=== PATIENT | male | born 1940 | race Caucasian/White ===

== ENCOUNTER 2021-08-14 14:33 | Emergency (ER) | payer OTHER ==
[~2021-08-14] VITALS: Ht 172.7 cm; Wt 84.4 kg
[2021-08-14] MEDS ORDERED: FISH OIL 1,0001 EAC9 PO (14:39)
[2021-08-14] MEDS ORDERED: ALPRAZOLAM 0.0.25 M1 PO (14:39)
[2021-08-14] MEDS ORDERED: MELATONIN3 M1 PO (14:40)
[2021-08-14] MEDS ORDERED: FLOMAX0.4 MG PO (14:40)
[2021-08-14] MEDS ORDERED: MAG-OXIDE400 MG PO (14:40)
[2021-08-14 14:52] LABS: HEMATOCRIT 37.7 % (42.0-52.0); HEMOGLOBIN 12.7 gm/dL (14.0-18.0); MCH 30.2 pg (26.0-34.0); MCHC 33.7 g/dL (28.0-37.0); MCV 89.5 fL (80.0-100.0); RBC 4.21 mil/uL (4.50-6.00); RDW 13.3 % (10.5-14.5); WBC 6.7 thou/uL (4.0-11.0)
[2021-08-14 15:05] LABS: CALCIUM 8.8 mg/dL (8.5-10.1); CREATININE 1.3 mg/dL (0.7-1.3); POTASSIUM 4.4 mmol/L (3.5-5.1)
[2021-08-14 15:11] LABS: ALBUMIN 3.7 g/dL (3.4-5.0); TOTAL BILIRUBIN 0.3 mg/dL (0.2-1.0); TOTAL PROTEIN 7.2 g/dL (6.4-8.2)
[2021-08-14 15:25] LABS: URINE BILIRUBIN NEGATIVE (Negative); URINE BLOOD NEGATIVE (Negative); URINE CLARITY CLEAR; URINE COLOR YELLOW; URINE GLUCOSE-RANDOM* NEGATIVE (Negative); URINE KETONES NEGATIVE (Negative); URINE LEUKOCYTES-REFLEX NEGATIVE (Negative); URINE NITRITE-REFLEX NEGATIVE (Negative); URINE PROTEIN (DIPSTICK) NEGATIVE (Negative); URINE UROBILINOGEN 0.2 E.U./dl (0.2-1.0)
[2021-08-14 15:34] LABS: AMP/METHAMP Negative (Negative); BARBITURATES Negative (Negative); BENZODIAZEPINES Negative (Negative); COCAINE Negative (Negative); METHADONE Negative (Negative); OPIATES Negative (Negative); PCP Negative (Negative)
[2021-08-14 20:39] VITALS: BP 118/62
--- NOTE | 2021-08-15 07:19 | EKG ---
[place] [address] [facility] [place] [address] ELECTROCARDIOGRAM REPORT Name: TRI CAMARILLO Room #: DEP ISRAEL [place]#: [id number] Admission: 08/14/21 Attend Phys: Discharge: 08/14/21 Date of : 36 Report #: [id number] [facility] ED Test Date: 2021-08-14 Test Time: 16:17:35 Pat Name: TRI CAMARILLO Department: Room: Gender: Weight Count Operator: KELLY : 1940 Requested By: Oksana Fajardo Order Number: [id number] MD: Carlos Crump Measurements Intervals [place] Rate: 68 P: 32 RI: 179 QRS: -72 QRSD: 93 T: 32 QT: 420 QTc: 447 Interpretive Statements Sinus rhythm Atrial premature complex Abnormal R-wave progression, late transition No previous ECG available for comparison Electronically Signed On 08-15-2021 7:19:07 CDT by Carlos Crump [email or web address] <ELECTRONICALLY SIGNED> By: Carlos Crump MD, [facility] 08/15/21 0719 1617 1617 Carlos Crump MD, FACC /EPI
== END 2021-08-14 20:39 ==
LOC: ER 14:33
PROVIDERS: Nurse Practitioner Family
DX: F91.8 Other conduct disorders (principal); Z20.822 Contact with and (suspected) exposure to COVID-19; J18.0 Bronchopneumonia, unspecified organism; F02.80 Dementia in other diseases classified elsewhere, unspecified severity, without behavioral disturbance, psychotic disturbance, mood disturbance, and anxiety; J44.9 Chronic obstructive pulmonary disease, unspecified; Z79.891 Long term (current) use of opiate analgesic; Z79.899 Other long term (current) drug therapy

== ENCOUNTER 2021-08-14 18:04 | Inpatient (IN) | payer OTHER ==
[~2021-08-14] VITALS: Ht 172 cm; Wt 63.7 kg
[~2021-08-14 18:04] MED LIST: ALPRAZOLAM 0.0.25 M1 PO; FISH OIL 1,0001 EAC9 PO; FLOMAX0.4 MG PO; MAG-OXIDE400 MG PO; MELATONIN3 M1 PO
--- NOTE | 2021-08-14 23:27 | NUR ---
ADMISSION SUMMARY PT WAS ADMITTED TO [facility] ON 08/14/21 AT 2042. PT WAS CALM, PLEASANT, COOPERATIVE WITH ADMISSION PROCESS. VITAL SIGNS WERE OBTAINED; WITHIN NORMAL LIMITS. SKIN ASSESSMENT PERFOMED; SKIN IS DRY BUT OTHERWISE UNREMARKABLE. VERBAL CONSENTS WERE OBTAINED; RN SPOKE WITH VY CAMARILLO AT [phone]. VY CAMARILLO SHARED THAT PT IS A SMOKER AND RECENTLY THE [facility] HAS DECREASED PT FROM SMOKING 1.5 PACKS A DAY TO ONLY 5 CIGARETTES PER DAY. DPOA WONDERS IF THE NICOTINE WITHDRAWAL COULD BE CAUSING PT'S BEHAVIOR CHANGE. (NICOTNE PATCH IS ORDERED FOR PATIENT.) DPOA STATES THAT PT ONLY HAS A 5TH GRADE EDUCATION AND THE PATIENT IS NOT ABLE TO ANSWER MOST QUESTIONS INTELLIGENTLY. JI SAUER WAS NOTIFIED PT WAS ADMITTED; BEING SEEN FOR PNEUMONIA. DPOA STATES THAT PT DOES NOT HAVE A HISTORY OR FALLS AND STAYS ACTIVE. THIS EVENING PT WAS ALERT AND ORIENTED ONLY TO SELF.
[2021-08-15 07:31] LABS: CHOLESTEROL 154 mg/dL (<200); HDL CHOLESTEROL 47 mg/dL (>40); LDL CHOLESTEROL 78 mg/dL (<100); TC:HDL 3.3 Ratio (Not establshd); TRIGLYCERIDE 148 mg/dL (<150); VLDL 30 mg/dL (<40)
[2021-08-15 07:44] LABS: SERUM ASSESSMENT Clear
[2021-08-15 09:04] VITALS: BP 110/51
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
--- NOTE | 2021-08-15 19:06 | NUR ---
LINDSEY and Dr. Navarro attempted to meet with the Pt. Pt was sleep and did not awake when his name was called. We were able to talk to the Pt's DPOA, Wilfrid Robertshop [phone]. Wilfrid gave brief history on the Pt. Wilfrid and the Pt moved to [place] in January of 2021. Pt has been at [facility] since that time. 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 Pt's mother and a brother passed from alzheimer's. Pt's father passed from a heart attack. Pt has 6 siblings, 3 still living. Pt completed the 5th grade. Pt was twice. Pt's 2nd passed 3 years ago. They were 30 years. Hx of drug and ETOH use was denied. Denied prior psychiatric hospital stays. There were no questions or concerns. LINDSEY will continue to follow
--- NOTE | 2021-08-15 23:39 | NUR ---
AT ONSET OF SHIFT PT WAS RESTING IN BED ASLEEP. PT WAS DROWSY THIS SHIFT. PT IS UNABLE TO ANSWER ASSESSMENT QUESTIONS APPROPRIATELY. PT WAS UNCOOPERATIVE DURING ASSESSMENT; WOULD NOT REPOSITION FOR RN TO AUSCULTATE PT. PT REFUSED MEDICATION CRUSHED IN PUDDING. PT WOULD NOT OPEN HIS MOUTH. LAB ATTEMPTED TO DRAW BLOOD FROM PATIENT. PATIENT PULLED ARM AWAY. RN LATER ATTEMPTED TO DRAW BLOOD AGAIN AND PT BECAME COMBATIVE. PT ATTEMPTED TO STAND UP. STAFF WAS ABLE TO DRAW ONE TUBE, BUT WILL ATTEMPT AGAIN LATER. WILL CONTINUE TO MONITOR.
[2021-08-16 01:01] LABS: ALBUMIN 3.8 g/dL (3.4-5.0); CALCIUM 9.2 mg/dL (8.5-10.1); POTASSIUM 4.4 mmol/L (3.5-5.1); TOTAL BILIRUBIN 0.5 mg/dL (0.2-1.0); TOTAL PROTEIN 7.4 g/dL (6.4-8.2)
[2021-08-16 04:07] LABS: GLYCOHEMOGLOBIN (HGB A1C) 5.6 % (4.8-5.6)
[2021-08-16 05:32] LABS: HEMATOCRIT 39.2 % (42.0-52.0); HEMOGLOBIN 13.1 gm/dL (14.0-18.0); MCH 30.4 pg (26.0-34.0); MCHC 33.4 g/dL (28.0-37.0); RBC 4.31 mil/uL (4.50-6.00); RDW 13.1 % (10.5-14.5); WBC 5.7 thou/uL (4.0-11.0)
[2021-08-16 09:24] VITALS: BP 120/69
[2021-08-16 13:49] VITALS: BP 120/69
--- NOTE | 2021-08-16 19:32 | NUR ---
Patient care resummed. patient was up and wondering the unit upon shift change. Patient refused his PO zyprexa this AM and forced IM was given in place by orders. Security was called for assistance. Patient is disoriented *4 and is unable to properly answer questions, in responce mumbles unclear words. Patient was found multiple times in other patients rooms in there beds, needin to be reorientened to his room. Patient is meal compliant, and have increased patients water intake. Patients lung sounds noted for wheezing with O2 noted @ 98%. Patient is uncooperative for all care. Patient presented to CYBER SECURITY ANALYST calm and confused but when hands on care was needed patient became combative. Will continue to monitor patient for safety and behaviors.
[2021-08-16 20:28] VITALS: BP 155/89
--- NOTE | 2021-08-17 06:28 | NUR ---
ASSUMED CARE ON 08/16/21 @ 1900, SEATED IN NAZANIN CHAIR IN DAY ROOM. TOOK MEDS P.O. REQUIRING SOME OF THE MEDS TO BE CRUSHED IN PUDDING. RESTLESS AND SPITTING ON STAFF. GIVEN ZYPREXA IM WITH [id number] ASSISTANCE, TOLERATED WELL. OCCASIONAL COUGH NOTED. DID NOT SLEEP AT ALL OVERNIGHT AND WAS CONTINUALLY RESTLESS TRYING TO PUT LEGS OUT OF NAZANIN CHAIR AND GET OUT OF THE CHAIR.
[2021-08-17 09:39] VITALS: BP 107/65
[2021-08-17 11:59] LABS: URINE BILIRUBIN NEGATIVE (Negative); URINE BLOOD NEGATIVE (Negative); URINE CLARITY CLEAR; URINE COLOR YELLOW; URINE GLUCOSE-RANDOM* NEGATIVE (Negative); URINE KETONES NEGATIVE (Negative); URINE LEUKOCYTES-REFLEX NEGATIVE (Negative); URINE NITRITE-REFLEX NEGATIVE (Negative); URINE PROTEIN (DIPSTICK) TRACE (Negative); URINE SPECIFIC GRAVITY >= 1.030 (1.005-1.035); URINE UROBILINOGEN 0.2 E.U./dl (0.2-1.0)
[2021-08-17 12:49] VITALS: BP 107/65
--- NOTE | 2021-08-17 17:45 | NUR ---
Derik was alert and oriented to self only this shift. He was disorganized and his speech was garbled. He was very restless this morning, trying to climb out of his chair. The RACE CAR DRIVER reported to this RN that pt was not toileted last night and pt had not yet urinated today, and was still dry. Pt was bladder scanned and it showed that pt had greater than [address] Mendoza was paged and orders received to bladder scan pt every 6 hours and to straight cath pt if greater than 350 mL. Pt was straight cathed at 1140 and had 675 mL output. Pt was still restless but less so than prior to straight cath. Pt was bladder scanned again at 1700 and had 98mL. Pt was medication compliant this shift, taking zyprexa whole in pudding. This shift RACE CAR DRIVER reported that pt appeared to be shaking uncontrollably but was reposonsive during that time, and it lasted about 1 minute. Pt was also less mobile this shift, and presented with stiff legs during transfers and required 3 staff members with cares. Due to significant change from pt's mobiity and decline from pt walking yesterday, NOHELIA Garrison held pt's zyprexa tonight and ordered a one time dose of ativan PO. Pt was also noted grapsing and talking to the unseen throughout the day. Pt also has poor oral intake as pt would spit out any food that was fed to him, despite him agreeing he was hungry. A piece of bread of placed in front of pt to see if he would eat if he was able to feed himself but pt took a bite an then spit that out. Pt was obsserved by this RN jerking his arms and legs this afternoon and did not appear to be seizure activity as pt was responsive to this RN's touch. Pt's COVID test was also completed this shift and order placed per NOHELIA Garrison. Will continue to monitor.
--- NOTE | 2021-08-18 00:31 | NUR ---
RECEIVED CALL FROM DARIN IN LAB AT 0010 STATING THAT THIS PATIENT HAD A CONFIRMED POSITIVE COVID PCR THAT JUST PROCESSED. MOVED PATIENT IMMEDIATELY FROM THE DINING ROOM WHERE HE HAD BEEN SITTING AWAY FROM OTHER PATIENTS AND WITH THE JUVENILE COURT JUDGE'S. PATIENT MOVED TO HIS BED AND MADE COMFORTABLE. NOHELIA RODRÍGUEZ AND NOHELIA ANN NOTIFIED BY PHONE. ORDER GIVEN FOR ISOLATION CART AND WAS SET UP WITH ISOLATION GOWNS, [id number] AND GLOVES OUTSIDE ROOM. DUE TO PATIENT'S DEMENTIA WITH BEHAVIORS PATIENT'S DOOR NEEDS TO STAY PARTIALLY OPEN TO WATCH PATIENT. PATIENT IS RESTLESS OFF AND ON IN BED. AT THIS TIME HE IS STILL. PATIENT WAS BLADDER SCANNED AT MIDNIGHT AND HAD 155ML RESIDUAL. HE WAS NOT SCANNED. NOHELIA RODRÍGUEZ STATES TO RECHECK COVID WHEN DO NEXT BLADDER SCAN WHEN DO MORNING CARES AROUND 6 OR 7. MAY NEED 1:1 ON PATIENT IF BEHAVIORS ESCALATE. NEED ORDER FOR THIS IF IT HAPPENS. BED IN LOW POSITION AND BED ALARM IS ON. CONTINUING TO MONITOR.
--- NOTE | 2021-08-18 01:38 | NUR ---
PATIENT SAT UP IN DINING ROOM UNTIL CALL RECIEVED OF POSITIVE COVID PCR RESULT AND PT THEN PLACED IN BED IN HIS ROOM. PATIENT IS COMBATIVE WITH CARES AND WAS UNABLE TO GET VITALS ON PATIENT. FOUGHT ALOT JUST TO GET 02 PULSE OX DONE WHICH WAS 98. PATIENT DID HAVE A CUP OF WATER TONIGHT, ABOUT 100CC. PATIENT HAVING VISUAL HALLUCINATIONS AND APPEARS TO SEE THINGS IN THE AIR AND LOOKS LIKE HE IS TRYING TO GRAB THINGS AND PULL THEM DOWN FROM THE KRYSTYNA. HE IMAGINES HE IS FEEDING HIMSELF BUT REFUSES FOOD WHEN TRYING TO GIVE HIM ANY. REFUSED HALF OF HIS MEDS THAT WERE CRUSHED IN PUDDING TONIGHT AFTER SEVERAL ATTEMPTS. Malik BURNS NP NOTIFIED. NO NEW ORDER. PATIENT RAMBLES WHEN TALKING AND DOESN'T MAKE SENSE. NO SIGNS OF SI/HI NOTED. BED IN LOW POSITION AND BED ALARM IS ON. ROUTINE ROUNDS TO ASSESS SAFETY AND STATUS OF PATIENT. PATIENT REMAINS IN FULL CONTACT ISOLATION. CONTINUING TO MONITOR.
--- NOTE | 2021-08-18 05:30 | NUR ---
PATIENT HAD 120 WATER IN ROOM TONIGHT. HE STARTED WITH CONGESTIVE NONPRODUCTIVE COUGH AROUND 0500 TODAY. PATIENT VERY COMBATIVE WITH CARES AND HAD A COUPLE OF SECONDS EARLIER IN THE NIGHT OF EXTREMITIES SHAKING LIKE A STARTLE RESPONSE BUT SPONTANEOUSLY. PATIENT WAS AWAKE AND TALKING AT THE TIME.DID NOT DO 0600 BLADDER SCAN D/T COMBATIVENESS OF PATIENT AND HE HAD SOAKED THRU HIS DISPOSABLE BRIEFS WITH URINE. PALPATED OVER BLADDER WITHOUT SIGN OF TENDERNESS OR DISCOMFORT. PATIENT VISUALLY HALLUCINATING AND PULLING THINGS OUT OF THE AIR THAT HE SEE'S. UNSURE OF WHAT HE IS SEEING. PATIENT IN NAZANIN CHAIR IN ROOM. ORDER FOR LAP MIGUEL TO FASTEN IN THE FRONT OBTAINED. PT QUIET BUT RESTLESS IN NAZANIN CHAIR. CONTINUING TO MONITOR.
[2021-08-18 09:37] VITALS: BP 122/72
[2021-08-18 10:37] VITALS: BP 122/72
[2021-08-18 15:17] LABS: ABSOLUTE NEUTROPHILS 7.3 thou/uL (1.4-8.2); BASOPHILS 0.2 % (0.0-2.0); EOSINOPHILS 0.7 % (0.0-3.0); HEMATOCRIT 40.2 % (42.0-52.0); HEMOGLOBIN 13.5 gm/dL (14.0-18.0); LYMPHOCYTES 11.5 % (24.0-44.0); MCH 30.3 pg (26.0-34.0); MCHC 33.5 g/dL (28.0-37.0); MCV 90.3 fL (80.0-100.0); MONOCYTES 8.7 % (1.0-8.0); PLATELET COUNT 173 thou/uL (150-400); POLYS 78.9 % (36.0-66.0); RBC 4.45 mil/uL (4.50-6.00); RDW 13.5 % (10.5-14.5); WBC 9.2 thou/uL (4.0-11.0)
[2021-08-18 15:34] LABS: ALBUMIN 3.8 g/dL (3.4-5.0); CREATININE 0.9 mg/dL (0.7-1.3); POTASSIUM 4.7 mmol/L (3.5-5.1); TOTAL BILIRUBIN 0.7 mg/dL (0.2-1.0); TOTAL PROTEIN 7.4 g/dL (6.4-8.2)
--- NOTE | 2021-08-18 18:02 | NUR ---
At the start of the shift pt was on contact/droplet/airborne precautions for testing positive for COVID yesterday. Due to pt being a high fall risk, a staff member was sitting outside pt's door and keeping a close eye on pt. When RN supervisor drying, Sue, came to the unit, pt's behaviors and change in status from yesterday was explained and she advocated and spoke to Dr. Gardner, and orders received for stat cogentin 1 mg IM and ativan 1 mg IM given per DEC. Shortly after administration pt fell asleep and remained asleep until about 1700. Pt was monitored very frequently and was bladder scanned at 1200 and showed 164 mL, therefore pt was not straight cathed at that time. Pt was bladder scanned again at 1730 and showered 378 mL. Pt was straight cathed but was only able to obtain 275 mL output. Pt had a lapbuddy on throughout the day, due to being required to stay in his room due to isolation and restlessnes but that was removed at 1700. Isolation precautions were also discontinued this afternoon after retest today came back negative. Pt was placed in bed for the straight cath and is currently resting in bed with 3 siderails raised and bed alarm on highest setting. Pt was alert and oriented to self only this shift and was x2 assist. Pt did not appear in physical discomfort throughout the day, will continue to monitor.
[2021-08-18 20:20] VITALS: BP 121/61
[2021-08-18 20:23] VITALS: BP 121/61
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
--- NOTE | 2021-08-19 00:37 | NUR ---
PATIENT WAS IN BED RESTING WHEN ASSUMED CARE OF PATIENT AT 1900. PATIENT APPEARED MORE RELAXED TONIGHT AND SEEMED MORE ALERT. PATIENT STILL RAMBLES AND DOESN'T MAKE SENSE WHEN HE TALKS. HE HAS NOT APPEAR TO BE HAVING THE CONSTANT VISUAL HALUCINATIONS AND GRABBING THINGS FROM THE AIR THAT HE SEES. HE IS CALMER. HE BECAME RESTLESS FROM SLEEPING ALL DAY AND PATIENT WAS BROUGHT TO THE DINING ROOM TO RECLINE IN A NAZANIN CHAIR AT A TABLE. CHAIR ALARM ON AND IN PLACE. WHEELS LOCKED. PATIENT HAS BEEN CONTENT SITTING THERE AND DOSES OFF AND SLEEPS FOR A BIT AND THEN AWAKES AND SITS QUIETLY OR TALKS TO HIMSELF. HIS BODY SEEMS TO PULL TO HIS LEFT AND HE LEANS MORE ON TO HIS LEFT SIDE IN HIS CHAIR WITH HIS HEAD LEANING MORE TO THE LEFT. PATIENT IS CONTENT. HE HAS NOT DRANK MUCH WATER SO FAR BUT WILL ENCOURAGE. CONTINUING TO MONITOR.
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
--- NOTE | 2021-08-19 05:10 | NUR ---
PATIENT HAS BEEN QUIET MOST OF NIGHT. HE DOES NOT LIKE TO BE TOUCHED AND STARTLES AT APPROACH AT TIMES. HAVE SEEN 2 SLIGHT TREMORS/SEIZURE LIKE MOVEMENTS TONIGHT. HE IS MORE RELAXED TONIGHT. NOT TENSE. PATIENT DID DRINK 200 CC OF WATER TONIGHT. PATIENT HAS NOT VOIDED SO FAR TONIGHT. NEXT BLADDER SCAN DUE AROUND 0730. PATIENT RESTING QUIETLY IN RECLINER AT TABLE IN DINING ROOM. CHAIR ALARM ON AND WHEELS LOCKED. CONTINUING TO MONITOR. COMBATIVE WITH CARES.
--- NOTE | 2021-08-19 06:49 | NUR ---
PATIENT CATHED AT 0645 DUE BLADDER DISTENDED AND RESIDUAL WAS ONLY AT 339. CATHED PATIENT AND EXTRACTED 350CC OF JOSE COLORED URINE. PT TOLERATED WELL. PT DID ASK FOR CUP OF WATER AFTER PROCEDURE AND WAS GIVEN ICE WATER.
[2021-08-19 09:21] VITALS: BP 137/77
[2021-08-19 09:37] VITALS: BP 120/66
--- NOTE | 2021-08-19 14:44 | NUR ---
LINDSEY and Dr. Navarro participated in aphone call with the Pt's DPOA, Wilfrid. An update was given on the Pt. Pt is not eating or drinking. Options for hospice and NG tubes was discussed. Further education was provided about hospice. Pt will be ready for discharge . Wilfrid wanted time to talk to other family concerning the matter. A family meeting was set for 08/20/2021 @1300.
--- NOTE | 2021-08-19 17:52 | NUR ---
Pt was alert and oriented to self only throughout the day. He would often talk to himself, rambling, and making nonsensical statements. Pt continues to have difficulties with urinary retention. He was bladder scanned at 1230 with 101 mL and bladder scanned at 1730 showed 194 mL, therefore pt was not straight cathed as he was not greater than 350 mL. Pt had poor oral intake this shift as pt ate a couple of bites at breakfast and two sips of an ensure. Pt took 4 bites of lunch and when encouraged to eat more pt stated "get that away from me" and would push away at staff. This afternoon pt was able to drink about 100 mL of water and would take the cup when he was thirsty. Despite encouragement, pt did not eat or drink anything for dinner. Pt took his PO seroquel this morning cruched in a bite of pudding that was given with repetitive approaches. Pt's seroquel was discontinued this shift and BMP ordered for tomorrow morning. Will continue to monitor.
--- NOTE | 2021-08-19 19:17 | NUR ---
Assumed care on 08/19/21 @ 1900, in a radha chair in the day room, eyes closed, respirations even and unlabored. Responds to voice, does not answer questions with intellegible response.
[2021-08-19 19:53] VITALS: BP 123/79
[2021-08-19 22:16] VITALS: BP 123/79
[2021-08-20 09:02] LABS: CALCIUM 9.2 mg/dL (8.5-10.1); CREATININE 0.9 mg/dL (0.7-1.3); POTASSIUM 3.9 mmol/L (3.5-5.1)
[2021-08-20 09:48] VITALS: BP 150/92
--- NOTE | 2021-08-20 17:46 | NUR ---
Assumed pt care at 0700. Pt was sadated upon assessments. Unable to assess orientation. Meds were not administered this shift. Pt ate one tin of apple sauce this shift. Ambulates with a Celine chair. Bladder scanned pt at 1700. pt had 350ml. Straight cath output was 400ml. At this time pt is in the day room awake. Will continue to monitor pt.
[2021-08-20 19:21] VITALS: BP 130/76
--- NOTE | 2021-08-21 00:42 | NUR ---
PATIENT RESTING IN COMMON AREA IN NAZANIN CHAIR. PATIENT IS AAOX1 ONLY. HE IS UNABLE TO HOLD A CONVERSATION. HE SHOWS NO S/S OF PAIN AT THIS TIME. PT SPEECH IS DELUSIONAL. HE TALKS ABOUT RELEVANT TOPICS BUT IT APPEARS TO BE FLASHBACKS. ALL SAFETY PRECAUTIONS ARE IN PLACE. VSS. WILL CONTINUE TO MONITOR FOR CHANGES IN STATUS.
[2021-08-21] MEDS ORDERED: FLOMAX0.4 MG PO (09:24)
[2021-08-21] MEDS ORDERED: MORPHINE S100 MG/51 SUBLING (09:26)
[2021-08-21] MEDS ORDERED: LORAZEPAM I2 MG/1 M2 PO (09:27)
[2021-08-21 09:53] VITALS: BP 123/65
[2021-08-21 09:54] VITALS: BP 123/65
[2021-08-21 09:58] VITALS: BP 123/65
--- NOTE | 2021-08-21 10:00 | NUR ---
Patient care resummed, patient was up and in radha:chair upon shift change. Patient was meal compliant, medications have been D/C pending discharge to [facility]. Patient does have Comfort care medications on hand PRN. Patient is A&O*1, orientated only to self. Patients VSS and WNL. Patients abdomen is mildly distended, and bowel sounds are present. Patient has voided twice this morning. Patients lungs sounds present, with wheezeing noted. Patient has a bruise to the Right forarm, skin is warm and moist. Patient O2 95% on room air. Patient unable to voice concerns/goals and was uncooperative with assessment. Will continue to monitor patient for safety and behaviors. Fall preventions are in place. Discharge pending today for 113.
[2021-08-21 10:07] VITALS: BP 123/65
--- NOTE | 2021-08-21 10:53 | NUR ---
08/20/2021 LINDSEY assisted with the Pt completeing a zoom assessment with Caitlin at [facility]. [facility] is able to accept the Pt back on 08/21/2021. The prefered hospice company [facility]. LINDSEY did fax a referral to [facility].
--- NOTE | 2021-08-21 10:55 | NUR ---
Pt will discharge 08/21/2021 @ 1130 to [facility]. Sw recieved a call from [facility] who confirmed they have accepted the Pt. Discharge documents have been faxed to [facility] and [facility] Pt will be transported via stretcher by [facility]
--- NOTE | 2021-08-21 11:55 | NUR ---
Patient discharged from out facility at 1135 [facility] by a stretcher. Patient had brown paper bag with belongs located inside, along side discharge paperwork in a envolpe. Report was given to Caitlin at [facility] in [facility] at 1100. TECHNICAL MGR spoke to the patients DPOA at 1055 to recieve verbal consent for discharge paperwork, and to report that the patient was leaving the facility. TECHNICAL MGR reported to DPOA patient current condition and discharge time. Patient loaded into transport safely without complication.
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
== END 2021-08-21 11:35 | disposition hospice, inpatient (51) | DRG 56 ==
LOC: SBH
PROVIDERS: Hospitalist; Internal Medicine; Nurse Practitioner; Nurse Practitioner Family; ADMIT Psychiatry & Neurology Psychiatry; ATTEND Psychiatry & Neurology Psychiatry
DX: G30.9 Alzheimer's disease, unspecified (principal); F01.51 Vascular dementia, unspecified severity, with behavioral disturbance; J18.9 Pneumonia, unspecified organism; F02.81 Dementia in other diseases classified elsewhere, unspecified severity, with behavioral disturbance; J44.0 Chronic obstructive pulmonary disease with (acute) lower respiratory infection; Z20.822 Contact with and (suspected) exposure to COVID-19; N40.0 Benign prostatic hyperplasia without lower urinary tract symptoms; I10 Essential (primary) hypertension; M19.90 Unspecified osteoarthritis, unspecified site; R26.89 Other abnormalities of gait and mobility; Z86.711 Personal history of pulmonary embolism
CPT/HCPCS: 10880

== ENCOUNTER 2021-08-22 16:05 | Inpatient (IN) | payer OTHER ==
[~2021-08-22] VITALS: Ht 172.7 cm; Wt 60.1 kg
[~2021-08-22 16:05] MED LIST changes: +LORAZEPAM I2 MG/1 M2 PO; +MORPHINE S100 MG/51 SUBLING
[2021-08-22 16:14] VITALS: BP 118/69
--- NOTE | 2021-08-22 19:02 | NUR ---
RECEIVED CALL FROM NURSING FACILITY WHERE PT RESIDES. THEY DECLINE TO HAVE HIM RETURNED
[2021-08-23 01:43] VITALS: BP 148/72
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
[2021-08-23 07:28] VITALS: BP 109/64
--- NOTE | 2021-08-23 09:40 | NUR ---
STRIKES OUT AT STAFF WHEN ATTEMPTED TO GIVE FLU SHOT OR FEED BREAKFAST-OPENS EYES AND STATES GET THE HELL AWAY FROM ME I DON'T WANT ANY FOOD OR ANY MEDICINE-JUST LEAVE ME ALONE" HAS CRAWLD [facility] SIDE [facility] SE[facility] TIM[facility] THIS AM.REFUSES AM ASSESSMENT-MEALS,MEDS VS ECT...
[2021-08-23 19:58] VITALS: BP 121/40
--- NOTE | 2021-08-24 02:54 | NUR ---
PATIENT AAOX1. PATIENT REACHED IN THE AIR FOR OBJECTS THAT ARE NOT PRESENT. HE IS INCONTINENT OF BWEL AND BLADDER. NO EVIDENCE OF PAIN NOTED. PATIENT HAS NOT SHOWN ANY OUTBURSTS DURING THIS SHIFT. VSS. WILL CONTINUE TO MONITOR.
--- NOTE | 2021-08-24 09:26 | NUR ---
HAS HAD EPSIDOES OF RESTLESSNESS THIS AM- ATTEMPTING TO CRAWL OVER THE SIDE OF [facility] IN ORDER TO GET UP AND WALK ON OWN. 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
--- NOTE | 2021-08-24 10:37 | NUR ---
OFFERS MINIMAL VERBAL RESPONSES DURING 1;1 WITH THIS RN-DENIES C/O PAIN-DISCOMFORT. DID EAT APPROX 35 PERCENT OF BREAKFAST AND TAKES ICE CHIPS AND WATER WELL WITH MINIMAL PROMPTING. CONTINUES TO APPEAR TO REACH OUT FOR UNSEEN OBJECTS AND AT ONE POINT THIS AM APPEARED TO BE HAVING CONVERSATION WITH UNSEENM OTHERS
[2021-08-24 10:38] VITALS: BP 115/72
--- NOTE | 2021-08-24 15:51 | NUR ---
3:50PM - Phone call to DPOA regarding pt. DPOA states that once pt returned to facility with hospice, he started eatinh again which had been a concern. The DPOA is concerned that the pt. will not be able to return to the placement with hospice since he lashed out due to not having any medication to address the issue.
--- NOTE | 2021-08-24 18:17 | NUR ---
ASSISTED TO BATHROOM AT APPROX 1600 AND HAD LARGE FORMED STOOL IN ADDITION TO BEING INCONTNENT OF URINE-NO DISTENSION NOTED TO BLADDER-BLADDER SCAN COMPLETED AND SHOES LESS THAN 50 CC-GIVEN ATIVAN INTINSOL0.5CC PO PRN X 2 FOR RESTLESSNESS,ANXIETY- NOTED TO BE GRIMACING AND SQUIRMING IN CHAIR-COCYX OTED TO BE REDDENED-SCROTUM REDDENED-PLACED ON SIDE IN BED TO LESSEN PRESSURE AND MORPHINE 0.5CC GIVEN PO PRN AT 1730-DID EAT APPROX 30 PERCENT OF SUPPER PRIOR TO FALLING ASLEEP AT 1830.REPOSITIONED Q 2 HOURS
--- NOTE | 2021-08-25 07:24 | EKG ---
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
[2021-08-25 09:26] VITALS: BP 90/47
[2021-08-25 09:27] VITALS: BP 88/55
[2021-08-25 11:00] VITALS: BP 115/62
--- NOTE | 2021-08-25 11:38 | NUR ---
Patient currently weighs 132.4 pounds. Patient weighed 140.4 pounds on 08/21/21. Patient has been declining to eat. Multiple staff have attempted to feed patient several different foods. Patient continues to decline. Patient presents as lethargic and weak.
--- NOTE | 2021-08-25 12:42 | NUR ---
Alert and orientated to name only. Threw bottom dentures. Nonverbal to questions. Sitting/lying calmly without s/o distress. Attempted to feed at lunch--held spoon of yogurt and sip of ensure shake in mouth and garbled for several minutes. When finally swallowed he started coughing. Reaches for his face and touches face without difficulty but does require 2 person assist to lift to chair. Breath sounds clear. Reg HR auscultated. Color pink with brisk capillary refill and palpable peripheral pulses. BP repeated d/t being in 80s systolic. Yellow urine per pad. Active bowel sounds over soft, flat abdomen. Currently sleeping in room without s/o distress.
--- NOTE | 2021-08-25 15:18 | NUR ---
LINDSEY and Dr. Navarro spoke with the Pt's DPOA, Wilfrid. An update was given on the Pt. Dr. Navarro recommended hospice house due to the Pt not eating and not being able to return to his placement. If Pt is unable to qualify for hospice the Pt may remain in the hospital. Wilfrid was in agreement with the plan. LINDSEY faxed referral for hospice house to hospice and [facility]. LINDSEY will continue to follow
[2021-08-25 19:35] VITALS: BP 123/71
[2021-08-25 20:40] VITALS: BP 123/71
--- NOTE | 2021-08-26 02:51 | NUR ---
PATIENT CARE WAS RESUMED AT 1900. HE IS AWAKE RESTING ON THE NAZANIN-CHAIR. MAX ASSIST [facility] CARE. HE IS INCONTINENT OF BOWEL AND BLADDER. LUNGS ARE CLEAR BS ACTIVE X4 QUADS. HE DENIES PAINS AND NO SIGN OF SI/AVH/HI NOTED. HE CONTINUED ON HOSPICE CARE. HE IS CALM AND COMFORTABLE AT THIS TIME. B24MATAOUM CHECKS ARE ONGOING. FLIUDS ARE GIVEN AND PATIENT IS REPOSITIONED [id number]. ALARM IN PLACE. YELLOW TOP AND SOCKS ARE ON. CONTINUE CARE
[2021-08-26 08:45] VITALS: BP 110/64
[2021-08-26 09:36] VITALS: BP 110/64
--- NOTE | 2021-08-26 13:16 | NUR ---
Refusing to answer orientation questions but does make some statements--some coherent and some not. Stated "I hurt" but unable state where. 5 mg Morphine given PO with good results. Attempted to feed X2--very resistant clamping down lips. Winked at staff. Initially resistant to shower but then compliant and participatory. Breath sounds clear and diminished. Reg HR auscultated. Color pink with brisk capillary refill and palpable peripheral pulses. Urinated large amt yellow urine in shower and passing flatulence. Active bowel sounds over soft, flat abdomen. Two assist transfer. Accepted at Hospice house. Report called to EFRAIN Sim RN. Discharged per and then ambulance. Spoke with son, agrees with plan.
--- NOTE | 2021-08-26 17:00 | NUR ---
S/W ESSENCE AT [facility] TO REQUEST A COPY OF REVOCATION LETTER FROM THE HOSPICE AGENCY [phone]. SHE SAYS SHE WILL NEED TO FOLLOW-UP ON THIS & RETURN MY CALL, MY FAX WAS PROVIDED TO HER WELL.
== END 2021-08-26 13:00 | disposition hospice, home (50) | DRG 884 ==
LOC: ER 16:05 → SBH 23:01 → ER 08-23 00:34 → SBH 08-26 13:00
PROVIDERS: Emergency Medicine; ADMIT Psychiatry & Neurology Psychiatry; ATTEND Psychiatry & Neurology Psychiatry
DX: F03.91 Unspecified dementia, unspecified severity, with behavioral disturbance (principal); F01.51 Vascular dementia, unspecified severity, with behavioral disturbance; N40.0 Benign prostatic hyperplasia without lower urinary tract symptoms; J44.9 Chronic obstructive pulmonary disease, unspecified; Z60.2 Problems related to living alone; I10 Essential (primary) hypertension; F17.210 Nicotine dependence, cigarettes, uncomplicated; Z20.822 Contact with and (suspected) exposure to COVID-19; Z28.21 Immunization not carried out because of patient refusal
CPT/HCPCS: 10880